=== PATIENT | female | born 1990 | race Caucasian/White ===

== ENCOUNTER 2016-06-04 09:25 | Emergency (ER) | payer OTHER ==
[2016-06-04] MEDS ORDERED: ONDANSETRON DISINTEGRATING 4 MG TAB PO ONE (10:12)
[2016-06-04] MEDS ORDERED: ACETAMINOPHEN 325 MG TAB PO ONE (10:18)
--- NOTE | 2016-06-04 12:01 | EDPHY ---
H & P Stated Complaint: last night 0130 hit forehead on open drawer/no loc/has clark/ nausea Source: Patient - Personal History LMP (Females 10-55): 1-7 Days Ago Current Tetanus/Diphtheria Vaccine: Yes - Medical/Surgical History Hx Asthma: No Hx Chronic Respiratory Disease: No Hx Diabetes: No Hx Cardiac Disease: No Hx Renal Disease: No Hx Cirrhosis: No Hx Alcoholism: No Hx HIV/AIDS: No Hx Splenectomy or Spleen Trauma: No Other PMH: denies - Social History Smoking Status: Never smoked Time Seen by Provider: 06/04/16 09:49 HPI/ROS: CHIEF COMPLAINT: head injury HISTORY OF PRESENT ILLNESS: 25-year-old female presents emergency department complaining of a headache, nausea and difficulty focusing after she struck her head last night. Patient was bending over and hit her forehead on an open brake engineer her dresser. No loss of consciousness, patient remembers the entire accident, no neck pain. Patient had a mild headache before going to bed last night, she woke up this morning with nausea, continued headache, difficulty focusing. She denies forceful vomiting, confusion, altered gait. No previous head injuries. Friends at bedside reports she is acting appropriate REVIEW OF SYSTEMS: A comprehensive 10 point review of systems is otherwise negative aside from elements mentioned in the history of present illness. (Carole Carver) - Physical Exam Exam: GEN: Awake, alert, oriented, no acute distress RESP: nl resp effort MSK: No C-spine tenderness to palpation SKIN: Small superficial abrasion to forehead Neuro grossly intact, normal finger-nose, normal svst-ca-ohce, normal rapid alternating movements, negative Romberg's, normal gait (Carole Carver) Constitutional: Initial Vital Signs Temperature (C) 36.8 C 06/04/16 09:34 Heart Rate 81 06/04/16 09:34 Respiratory Rate 17 06/04/16 09:34 Blood Pressure 104/79 06/04/16 09:34 O2 Sat (%) 99 06/04/16 09:34 O2 Delivery Mode Room Air Allergies/Adverse Reactions: No Known Allergies Allergy (Unverified 06/04/16 09:34) Home Medications: Medication Instructions Recorded Ondansetron Odt [Zofran Odt] 4 mg PO Q6-8PRN PRN #8 tab 06/04/16 Medical Decision Making ED Course/Re-evaluation: This patient presents after a minor head injury with mild headache, no amnesia or LOC.] Neurologic exam normal. No indication for neuro imaging. CHI precautions given. (Carole Carver) Differential Diagnosis: The differential diagnosis for the patient's head injury included but was not limited to concussion, skull fracture, intra-parenchymal contusion, subarachnoid , subdural and epidural hematoma. (Carole Carver) Other Provider: The patient was evaluated and managed by the midlevel provider. I discussed the patient's presentation and course with the physician physician assistant or nurse practitioner and agree with the evaluation. My co-signature indicates that I have reviewed this chart and I agree with the findings and plan of care as documented. I am the secondary supervising physician. (Donna Thorne) - Data Points Medications Given: Discontinued Medications Acetaminophen (Tylenol) 650 mg PO EDNOW ONE Stop: 06/04/16 10:19 Last Admin: 06/04/16 10:28 Dose: 650 mg Ondansetron HCl (Zofran Odt) 4 mg PO EDNOW ONE Stop: 06/04/16 10:13 Last Admin: 06/04/16 10:23 Dose: 4 mg Departure - Departure Disposition: Home, Routine, Self-Care Clinical Impression: Minor head injury without loss of consciousness, Concussion Condition: Good Instructions: Concussion (ED), Head Injury (ED) Additional Instructions: Return to the emergency department for any forceful vomiting, confusion, altered gait. Take Tylenol and/or ibuprofen for headaches, take Zofran every 6- 8 hours as needed for nausea. Call Dr. Quintanilla to schedule appointment to be seen for concussion treatment. Referrals: Lydia Quintanilla MD [Medical Doctor] - As per Instructions (Concussion specialist on-call) Prescriptions: Ondansetron Odt [Zofran Odt] 4 mg PO Q6-8PRN PRN #8 tab PRN Reason: Nausea/Vomiting, Can'T Take Po
[2016-06-04 12:08] VITALS: BP 118/79; PULSE 70; RESP 14; TEMP 98.4; O2SAT 94
== END 2016-06-04 12:07 | disposition home or self-care (01) ==
DX: S06.0X0A Concussion without loss of consciousness, initial encounter (principal); W22.8XXA Striking against or struck by other objects, initial encounter